=== PATIENT | male | born 1980 | race Caucasian/White ===

== ENCOUNTER 2020-08-10 17:33 | Emergency (ER) | payer BC ==
[2020-08-11 18:36] LABS: SARS-CoV-2 MS2 Positive; SARS-CoV-2 N Gene Negative; SARS-CoV-2 S Gene Negative; SARS-CoV-2 by NAA Not Detected (NotDetected); SARS-CoV-2 orf1ab Negative
== END 2020-08-10 18:54 | disposition home or self-care (01) ==
LOC: MADERS 17:33
DX: Z20.828 Contact with and (suspected) exposure to other viral communicable diseases (principal); F17.210 Nicotine dependence, cigarettes, uncomplicated
CPT/HCPCS: 87635; 99283; U0003

== ENCOUNTER 2021-03-03 20:29 | Emergency (ER) | payer BC, SELFPAY | END 2021-03-03 22:07 | disposition home or self-care (01) | LOC: MADERS 20:29 | DX: L55.1 Sunburn of second degree (principal); R21 Rash and other nonspecific skin eruption; F17.210 Nicotine dependence, cigarettes, uncomplicated | CPT/HCPCS: 99282 ==